=== PATIENT | female | born 1980 | race Caucasian/White ===

== ENCOUNTER 2022-03-28 14:15 | Emergency (ER) | payer OTHER, SELFPAY ==
[2022-03-28 14:17] VITALS: BP 134/82; PULSE 87; RESP 18; TEMP 36.5; O2SAT 96; BMI 45.7
[2022-03-28 14:20] VITALS: BP 134/82; PULSE 87; RESP 18; TEMP 36.5; O2SAT 96
[2022-03-28 15:20] VITALS: BP 120/70; PULSE 80; RESP 18; TEMP 36.7; O2SAT 98
--- NOTE | 2022-03-28 15:35 | EX.ED.VIS.UR ---
HPI HPI - URI History of Present Illness Chief Complaint: Shortness of Breath Narrative Narrative: 41-year-old female presenting with cough, rhinorrhea, congestion x2 weeks. Patient states that she does not have a primary care provider that she sees. She states she has been cigarette free for 11 months now. She states she used to wheeze when she was a smoker but does not believe she has COPD history. No history of asthma. Patient's reports that she does not have a fever, chills, body aches. She does report some left ear pain with her congestion and a sore throat. She also complains of a little bit of shortness of breath and a nonproductive cough which is making her voice hoarse. Patient is not had any nausea or vomiting. She does not have abdominal pain. No diarrhea or constipation. No urinary or vaginal complaints. Patient states that her children are now in school and have been sick with staff for the last few weeks. Has been tested for viral sources that have been negative. They followed up with the pediatricians and have improved. Patient reports he had COVID in December which was confirmed by swab. She recovered from this without sequela. ROS ROS ED Constitutional Constitutional ED: Denies chills, fever(s) or sweats Eyes Eyes: Denies change in vision or diplopia ENT ENT ED: Reports ear pain left and rhinorrhea Cardiovascular Cardiovascular: Denies chest pain or palpitations Respiratory/Chest Respiratory/Chest: Reports cough and dyspnea; Denies sputum Gastrointestinal Gastrointestinal: Denies abdominal pain, nausea or vomiting Genitourinary Genitourinary ED: Denies dysuria or hematuria Musculoskeletal Musculoskeletal: Denies arthralgias, back pain or myalgias Integumentary Denies abscess or Abrasions Neurologic Neurologic: Denies headache(s) or paresthesias Psychiatric Psychiatric: Denies anxiety or depression PFSH PFSH Home Medications albuterol sulfate 90 mcg/actuation aerosol inhaler (Ventolin HFA) 1 - 2 puff inhalation Q4H PRN PRN Wheezing #8.5 grams 03/28/22 [Rx Last Taken Unknown] prednisone 10 mg tablet 50 mg PO DAILY 5 days #25 tabs 03/28/22 [Rx Last Taken Unknown] Allergy/AdvReac Type Severity Reaction Status Date / Time No Known Allergies Allergy Verified 03/28/22 14:16 Social History Smoking Status: Former smoker EXAM Physical Exam Const Vital Signs: 03/28/22 14:17 03/28/22 14:20 03/28/22 15:20 Temperature 97.7 F L 97.7 F L 98.1 F Temperature Source Temporal Temporal Temporal Pulse Rate 87 87 80 Respiratory Rate 18 18 18 Respiratory Effort Respiratory Depth Respiratory Pattern Blood Pressure 134/82 H 134/82 H 120/70 Blood Pressure Mean 99 99 86 Pulse Ox 96 96 98 Oxygen Delivery Method Room Air Room Air Room Air 03/28/22 15:28 03/28/22 15:56 Temperature Temperature Source Pulse Rate 70 Respiratory Rate 18 Respiratory Effort Normal Non-Labored Respiratory Depth Normal Respiratory Pattern Normal Blood Pressure Blood Pressure Mean Pulse Ox Oxygen Delivery Method Room Air Positive well nourished General Appearance ED: NAD; Negative for pallor HEENT Reports external ears normal, EAC's normal and moist mucous membranes normocephalic and atraumatic Nose: Negative for nasal discharge Tympanic Membrane ED: Yes TM abnormal fluid behind TM Mouth ED: Yes oral and palatal mucosa normal, Yes lips normal, Yes tongue normal, Yes salivary gland normal and Yes moist mucous membranes normal Mouth: oral and palatal mucosa normal, lips normal, tongue normal and salivary gland normal Throat: posterior oropharynx abnormal Positive for erythema; Negative for edema, exudates or foreign body Eyes PERRL Neck no lymphadenopathy General: Negative for anterior neck swelling or lymphadenopathy Resp normal respiratory effort Auscultation: wheezes scattered wheezes Cardio Rate: regular rate Rhythm: regular rhythm Extremity normal to inspection Neuro oriented x3 and CN's II-XII intact bilaterally Sensorium / Orientation: alert Psych mental status grossly normal Skin General Skin Exam: Negative for jaundice or pallor MDM MDM MDM Narrative Medical decision making narrative: 41-year-old female with symptoms of cough, congestion, mild shortness of breath, left ear pain for about 2 weeks. Patient does not have a primary care provider. She states that her children have had the same symptoms and have been in and out of school. They have been tested for viral sources and these of all been negative for COVID, influenza, RSV. Her children are recovered and doing well however she has maintained a cough which is persistent. Her TMs do not show any sign of infection. Oropharynx is mildly erythematous without any exudates. No lymphadenopathy noted on examination. Heart regular rate and rhythm without murmur. Breath sounds are coarse bilaterally with scattered expiratory wheezing. Patient is already tested herself for COVID at home and this has been negative. Given that this has been 2 weeks I do not believe she needs any viral testing. She is given breathing treatments and prednisone to help with her breathing. I will check a chest x-ray as well. Chest x-ray my interpretation shows no acute cardiopulmonary process and the radiologist agree. After breathing treatments the patient was reevaluated and she feels much better. She feels that she is breathing a lot better. Patient to continue Mucinex. She will be placed on a prednisone burst. She is given albuterol inhaler for home. She was given a primary care for follow-up although I did recommend that she establish herself with a long-term primary care physician through her insurance. She acknowledged understanding. Return precautions discussed. Impression: 1. Acute bronchitis with wheezing Lab Data Attestation: I reviewed the patient's lab results. Radiography Diagnostic Testing: Clinical Impression(s) from Imaging Studies Chest X-Ray 03/28/22 16:05 IMPRESSION: There are no acute findings. Electronically Signed: Hal Zavala MD at 16:24 EDT Reading Location ID and State: [facility] / [place] , Service support , Discharge Plan Triage Chief Complaint: Shortness of Breath ED Provider: Corbin Leggett Dx/Rx/DC Orders Instructions: ED Bronchitis with Wheezing (Adult) Prescriptions: New albuterol sulfate [Ventolin HFA] 90 mcg/actuation HFA aerosol inhaler 1 - 2 puff inhalation Q4H PRN PRN (Reason: Wheezing) Qty: 8.5 0RF prednisone 10 mg tablet 50 mg PO DAILY 5 Days Qty: 25 0RF Primary Care Provider: Care Physician,No Primary Referrals: Madeline Cardona MD [Med Staff - Associate Professor Of Art] - 3-5 Days Care Physician,No Primary [Primary Care Provider] - Disposition Disposition: Home, Self Care
[2022-03-28] MEDS: Ipratropium/Albuterol Sulfate 3 ML AMPUL.NEB INHALATION (15:55)
[2022-03-28] MEDS: Albuterol 2.5 MG/3 ML VIAL.NEB. INHALATION (15:55)
[2022-03-28 15:56] VITALS: PULSE 70; RESP 18
[2022-03-28] MEDS: predniSONE 20 MG Tablet 60 MG PO (16:05)
--- NOTE | 2022-03-28 16:05 | RAD_ITS ---
STUDY: X-RAY CHEST REASON FOR EXAM: Female, 41 years old. CHEST PAIN cough TECHNIQUE: XR Chest 1 View COMPARISON: None FINDINGS: There is no demonstrated pleural abnormality. Normal size heart. Normal mediastinum and guerline. Normal visualized pulmonary arteries. Normal visualized aortic arch and descending thoracic aorta. There are diffuse degenerative changes of the visualized thoracic spine. Normal visualized ribs, clavicles, and shoulders. There is no demonstrated abnormality of the visualized soft tissue structures of the upper abdomen. RAD/Chest 1 View (Portable) IMPRESSION: There are no acute findings. Electronically Signed: Hal Zavala MD at 16:24 EDT ,
[2022-03-28 17:00] VITALS: BP 123/72; PULSE 86; RESP 18; O2SAT 99
--- NOTE | 2022-03-28 18:24 | CM.ED ---
SW Note Referral Source: Case Find Referral Reason: No Primary Care Physician (PCP) SW reviewed chart and noted that patient has no PCP. SW provided patient with list of [facility] and [facility] Physician List for reference. Patient said that she recently got insurance and moved to the area. No other issues or concerns voiced at this time. SW remains available for any additional needs. Plan: Provided patient with PCP information Elke BRUMFIELD
== END 2022-03-28 17:21 | disposition home or self-care (01) ==
PROVIDERS: Emergency Provider Student in an Organized Health Care Education/Training Program; Visit Provider Student in an Organized Health Care Education/Training Program
DX: J20.9 Acute bronchitis, unspecified (principal); Z86.16 Personal history of COVID-19; Z87.891 Personal history of nicotine dependence
CPT/HCPCS: 71045; 94640; 99284; A4216

== ENCOUNTER 2022-05-07 12:55 | Emergency (ER) | payer OTHER, SELFPAY ==
[2022-05-07 12:55] VITALS: BP 139/92; PULSE 84; RESP 16; TEMP 37.1; O2SAT 98; BMI 46.4
--- NOTE | 2022-05-07 12:58 | RAD_ITS ---
STUDY: X-RAY - LEFT KNEE REASON FOR EXAM: Female, 41 years old. Pain following a fall. TECHNIQUE: 3 view(s) of the knee. COMPARISON: None. FINDINGS: Normal visualized distal femur. Normal visualized proximal tibia and fibula. Normal proximal tibiofibular articulation. There is severe degenerative arthrosis of the medial femorotibial compartment with severe joint space narrowing. There is mild degenerative arthrosis of the lateral femorotibial compartment. There is moderate degenerative arthrosis of the patellofemoral articulation. The soft tissue structures are unremarkable. RAD/Knee 3 Views IMPRESSION: Degenerative arthrosis. Electronically Signed: John Robles MD at 13:24 EST ,
[2022-05-07 13:31] VITALS: O2SAT 98
--- NOTE | 2022-05-07 14:40 | ED.VIS.FALL ---
HPI HPI - Fall History of Present Illness Chief Complaint: Fall Informant: patient Narrative Narrative: Patient presents mechanical fall outside the deck this morning. Slipped. Fell pop right thigh however fell on a flexed left knee. No head injuries. No anticoagulation medicines. Ibuprofen taken earlier this morning. No history of fractures. Denies history gastric ulcers or kidney injury. PFSH PFSH Home Medications albuterol sulfate 90 mcg/actuation aerosol inhaler (Ventolin HFA) 1 - 2 puff inhalation Q4H PRN PRN Wheezing #8.5 grams 03/28/22 [Rx Last Taken Unknown] prednisone 10 mg tablet 50 mg PO DAILY 5 days #25 tabs 03/28/22 [Rx Last Taken Unknown] Allergy/AdvReac Type Severity Reaction Status Date / Time No Known Allergies Allergy Verified 05/07/22 12:57 Social History Smoking Status: Former smoker ROS ROS ED Constitutional Constitutional ED: Denies chills, fever(s) or sweats Eyes Eyes: Denies change in vision ENT ENT ED: Denies dysphagia or sore throat Cardiovascular Cardiovascular: Denies chest pain, leg edema, palpitations or racing heartbeat Respiratory/Chest Respiratory/Chest: Denies cough, dyspnea or dyspnea on exertion Gastrointestinal Gastrointestinal: Denies abdominal pain, diarrhea, nausea or vomiting Genitourinary Genitourinary ED: Denies dysuria, hematuria or urinary frequency Musculoskeletal Musculoskeletal: Reports extremity pain and other Details: Right thigh pain, left knee pain. ; Denies back pain or neck pain Integumentary Denies rash or wounds Neurologic Neurologic: Denies headache(s), paresthesias or weakness EXAM Physical Exam Const Vital Signs: 05/07/22 12:55 05/07/22 13:31 05/07/22 13:33 Temperature 98.8 F Temperature Source Temporal Pulse Rate 84 Respiratory Rate 16 Respiratory Effort Normal Blood Pressure 139/92 H Blood Pressure Mean 107 Pulse Ox 98 98 Oxygen Delivery Method Room Air Room Air Positive well nourished and well developed Constitutional Narrative: GCS 15. General Appearance ED: well developed and NAD HEENT Reports normocephalic and moist mucous membranes normocephalic and atraumatic Eyes PERRL, EOMs intact bilaterally and conjunctivae normal General Eye ED: Yes normal appearance of both eyes Neck no lymphadenopathy and supple General: Negative for tenderness Chest Wall Chest: Negative for tenderness Resp normal respiratory effort and normal air movement Effort and Inspection: symmetric chest movement; Negative for respiratory distress Cardio regular rate, regular rhythm and no murmurs Peripheral Pulses: pulses 2+ throughout GI normal to inspection, nondistended, normoactive bowel sounds and non-tender Palpation: Negative for guarding or rebound tenderness present Back/Spine no CVA tenderness and no thoracic nor lumbar tenderness Extremity Extremity Narrative: Upper extremities: Full range of motion. Right lower extremity: Negative logroll. Reproducible tenderness right lateral quads pain worsens reproducible extensor of the knee against resistance. There is no ecchymosis, no defects of the muscle. No hamstring pain. No IT band pain. No knee tenderness. Neuro vas intact distally. Left lower extremity: Negative logroll. Knee extensor mechanism intact. Tender palpation patellar. Negative varus and valgus. No deformities. No ankle foot tenderness. Neuro vas intact distally. General Extremety ED: Negative for edema or tenderness General Extremity: Negative for edema Neuro oriented x3 and no sensory deficits noted Sensorium / Orientation: awake and alert Skin no rashes or lesions noted and no wounds MDM MDM MDM Narrative Medical decision making narrative: Three-view left knee x-ray obtained per protocol from nursing reviewed by myself and read by radiology notes are arthritic changes. There is no fracture or dislocation. Left knee contusion concerns on exam. There is no fracture. For patient's right lower extremity concerns for quadriceps muscle strain. Anibal wrap to both regions for comfort. She is given ibuprofen in the ED should continue this every 6 hours for the next 2 days. Crutches provided for support. Outpatient follow-up given. All questions were answered. Radiography Diagnostic Testing: Clinical Impression(s) from Imaging Studies Knee X-Ray 05/07/22 12:58 IMPRESSION: Degenerative arthrosis. Electronically Signed: John Robles MD at 13:24 EST , Discharge Plan Triage Chief Complaint: Fall ED Provider: Rickey Dean Dx/Rx/DC Orders Clinical Impression: Muscle strain of right thigh, Contusion of knee, left, Fall Instructions: ED Soft Tissue Contusion, ED Muscle Strain, Extremity Prescriptions: No Action albuterol sulfate [Ventolin HFA] 90 mcg/actuation HFA aerosol inhaler 1 - 2 puff inhalation Q4H PRN PRN (Reason: Wheezing) Qty: 8.5 0RF prednisone 10 mg tablet 50 mg PO DAILY 5 Days Qty: 25 0RF Primary Care Provider: Care Physician,No Primary Referrals: Fast,Vira, DO [Med Staff - Peripheral Equipment Operator] - 1 Week if not improving Care Physician,No Primary [Primary Care Provider] - Activity Restrictions/Additional Instructions: Left knee negative for any fracture or dislocation. Maintain Anibal wrap for comfort. Use ibuprofen total 600 mg every 6 hours for the next 2 days then as needed. Use crutches for support as needed. Disposition Disposition: Home, Self Care Discharge Date/Time: 05/07/22 14:50
[2022-05-07] MEDS: Ibuprofen 600 MG Tablet PO (14:47)
== END 2022-05-07 14:50 | disposition home or self-care (01) ==
PROVIDERS: Emergency Provider Emergency Medicine; Visit Provider Emergency Medicine
DX: S80.02XA Contusion of left knee, initial encounter (principal); S76.911A Strain of unspecified muscles, fascia and tendons at thigh level, right thigh, initial encounter; Z87.891 Personal history of nicotine dependence; W01.0XXA Fall on same level from slipping, tripping and stumbling without subsequent striking against object, initial encounter
CPT/HCPCS: 73562; 99284